=== PATIENT | male | born 1990 | race Two or more races ===

== ENCOUNTER 2021-04-07 02:16 | Emergency (ER) | payer SELFPAY ==
[~2021-04-07] VITALS: Ht 170.2 cm; Wt 89.0 kg
[2021-04-07 04:14] VITALS: BP 115/61
== END 2021-04-07 05:02 | disposition home or self-care (01) ==
LOC: EMS 02:17
DX: F41.9 Anxiety disorder, unspecified (principal); F17.210 Nicotine dependence, cigarettes, uncomplicated
CPT/HCPCS: 99283

== ENCOUNTER 2021-04-11 10:42 | Emergency (ER) | payer MEDICAID ==
[~2021-04-11] VITALS: Ht 170.2 cm; Wt 89.0 kg
[2021-04-11 10:44] VITALS: BP 114/64
== END 2021-04-11 12:31 | disposition home or self-care (01) ==
LOC: EMS 10:42
DX: R07.89 Other chest pain (principal); F41.9 Anxiety disorder, unspecified; R00.2 Palpitations; F17.210 Nicotine dependence, cigarettes, uncomplicated
CPT/HCPCS: 93005; 99283

== ENCOUNTER 2021-04-23 20:39 | Emergency (ER) | payer MEDICAID ==
[~2021-04-23] VITALS: Ht 165.1 cm; Wt 86.0 kg
[2021-04-23 22:55] VITALS: BP 122/74
== END 2021-04-23 23:09 | disposition home or self-care (01) ==
LOC: EMS 20:44
DX: F41.9 Anxiety disorder, unspecified (principal)
CPT/HCPCS: 99283; Z7502